=== PATIENT | male | born 1950 | race Caucasian/White ===

== ENCOUNTER 2017-12-02 12:41 | Emergency (ER) | payer OTHER ==
[~2017-12-02] VITALS: Ht 185.4 cm; Wt 82.1 kg
[2017-12-02 13:00] VITALS: BP 141/88
[2017-12-02] MEDS ORDERED: MORPHINE SULFATE 8mg/ml INJ SDV IM ONE (15:30)
[2017-12-02] MEDS ORDERED: HYDROcodone-ACET 5/325MG TAB PO ONE (15:45)
== END 2017-12-02 16:45 | disposition home or self-care (01) ==
LOC: ER 12:41
DX: S00.83XA Contusion of other part of head, initial encounter (principal); R42 Dizziness and giddiness; M25.511 Pain in right shoulder; M25.561 Pain in right knee; M54.5 Low back pain; W19.XXXA Unspecified fall, initial encounter; Y93.89 Activity, other specified; Y92.89 Other specified places as the place of occurrence of the external cause; Y99.8 Other external cause status
CPT/HCPCS: 70450; 72100; 73030; 73562